=== PATIENT | male | born 1975 | race Two or more races ===

== ENCOUNTER 2019-06-24 05:42 | Inpatient (IN) | payer BC, MEDICAID, OTHER ==
[2019-06-23 19:00] VITALS: BP 136/86
[~2019-06-24] VITALS: Ht 172.7 cm; Wt 90.1 kg
[2019-06-24] MEDS ORDERED: SODIUM CHLORIDE 0.9% 1,000 ML IV ONE (06:15)
[2019-06-24] MEDS ORDERED: ONDANSETRON HCL 4 MG/2 ML VIAL IV ONE ×2 (06:15→08:00)
[2019-06-24 06:44] LABS: Basophils # (auto) 0 uL; Basophils % (auto) 0.2 % (0.0-2.0); Eosinophils # (auto) 0 uL; Eosinophils % (auto) 0.1 % (0.0-7.0); Hematocrit 48.4 % (41.0-53.0); Hemoglobin 16.4 g/dL (13.5-17.5); Lymphocytes # (auto) 0.7 uL; Lymphocytes % (auto) 3.9 % (10.0-50.0); Mean Corpuscular Hemoglobin 29.4 pg (28.0-32.0); Mean Corpuscular Hgb Conc. 33.8 g/dL (32.0-36.0); Mean Corpuscular Volume 87.1 fL (80.0-100.0); Monocytes # (auto) 0.9 uL; Monocytes % (auto) 5.6 % (0.0-12.0); Neutrophils % (auto) 90.2 % (37.0-80.0); Platelet Count (auto) 167 10^3/uL (140-450); Red Blood Cells 5.56 10^6/uL (4.5-5.90); Red Cell Distribution Width 13.9 % (11.8-14.3); White Blood Cell 16.7 10^3/uL (4.4-10.8)
[2019-06-24] MEDS ORDERED: KETOROLAC TROMETH 30 MG/ML 1ML VIAL IV ONE (06:45)
[2019-06-24 07:11] LABS: Albumin 4.3 g/dL (3.4-5.0); BUN/Creatinine Ratio 18.2; Bilirubin, Total 0.5 mg/dL (0.2-1.0); Calcium 8.8 mg/dL (8.5-10.1); Total Protein 8.5 g/dL (6.4-8.2)
[2019-06-24 10:45] LABS: Urine Bacteria NONE SEEN /hpf (None Seen); Urine Blood Negative /uL (Negative); Urine Hyaline Cast MANY /lpf (0 - 2); Urine Mucus FEW (None Seen); Urine Specific Gravity 1.033 (1.001-1.035); Urine WBC 2 /hpf (0 - 3)
[2019-06-24] MEDS ORDERED: LEVOFLOXACIN 500MG 100 ML IV ONE (17:30)
[2019-06-24] MEDS ORDERED: HYDROcodone-ACET 5/325MG TAB PO PRN (17:30)
[2019-06-24] MEDS ORDERED: ONDANSETRON HCL 4 MG/2 ML VIAL IV PRN (17:30)
[2019-06-24] MEDS ORDERED: ACETAMINOPHEN 500 MG TAB PO PRN (17:30)
[2019-06-24] MEDS: SODIUM CHLORIDE 0.9% 1,000 ML IV SCH (17:56)
--- NOTE | 2019-06-24 18:20 | NUR ---
MS admit from [facility] admitted to tele/MS ,primary RN, unit, room, bed, and unit policies regarding patient care and visiting hours. Patient weighed by bedscale and encouraged to call if they need something. All questions and concerns addressed, patient verbalized understanding. ,
--- NOTE | 2019-06-24 19:00 | NUR ---
OPENING SHIFT NOTE Assumed care of patient who is A&O x4. Currently on RA with no s/s of distress. is at the bedside at this time. POC discussed with patient who verbalizes understanding. Bed is in low locked position with side rails up x2. Call light is within reach and patient encourageed to call for assistance when needed. Will continue to monitor for changes PRN.
--- NOTE | 2019-06-24 20:23 | NUR ---
Patients home medications removed from bedside ad sent to pharmacy for storage until discharge.
[2019-06-24] MEDS: FAMOTIDINE (10MG/ML) 2ML VL IV SCH (21:52)
[2019-06-24] MEDS: metroNIDAZOLE 500MG/100ML 100 ML IV SCH (21:52)
[2019-06-24 22:00] VITALS: BP 136/86
[2019-06-24] MEDS ORDERED: DIAZ-104 PO (23:57)
[2019-06-24] MEDS ORDERED: LORA-622 PO (23:57)
--- NOTE | 2019-06-25 00:30 | NUR ---
Stool sample collected and sent to lab.
[2019-06-25] MEDS: SODIUM CHLORIDE 0.9% 1,000 ML IV SCH ×2 (03:30→13:30)
[2019-06-25 05:00] VITALS: BP 127/77
[2019-06-25 05:05] LABS: Basophils # (auto) 0 uL; Basophils % (auto) 0.4 % (0.0-2.0); Eosinophils # (auto) 0 uL; Eosinophils % (auto) 0.3 % (0.0-7.0); Hematocrit 43.3 % (41.0-53.0); Hemoglobin 14.7 g/dL (13.5-17.5); Lymphocytes # (auto) 1.2 uL; Lymphocytes % (auto) 16.2 % (10.0-50.0); Mean Corpuscular Hemoglobin 29.4 pg (28.0-32.0); Mean Corpuscular Hgb Conc. 33.8 g/dL (32.0-36.0); Mean Corpuscular Volume 86.9 fL (80.0-100.0); Monocytes # (auto) 0.6 uL; Monocytes % (auto) 7.6 % (0.0-12.0); Neutrophils # (auto) 5.5 uL; Neutrophils % (auto) 75.5 % (37.0-80.0); Nucleated Red Blood Cells % 0.1 %; Platelet Count (auto) 139 10^3/uL (140-450); Red Blood Cells 4.99 10^6/uL (4.5-5.90); White Blood Cell 7.3 10^3/uL (4.4-10.8)
[2019-06-25 05:27] LABS: Albumin 3.1 g/dL (3.4-5.0); Calcium 7.2 mg/dL (8.5-10.1); Potassium 3.7 mmol/L (3.5-5.1)
[2019-06-25 05:31] LABS: BUN/Creatinine Ratio 21.6; Bilirubin, Total 0.4 mg/dL (0.2-1.0); Total Protein 6.3 g/dL (6.4-8.2)
[2019-06-25] MEDS: metroNIDAZOLE 500MG/100ML 100 ML IV SCH (05:34)
--- NOTE | 2019-06-25 07:00 | NUR ---
Closing note Care endorsed to day shift RN. Patient is resting in bed, respirations are even and non-labored. No s/s of distress.
--- NOTE | 2019-06-25 07:30 | NUR ---
Opening Shift Note Assumed care of patient, awake and alert. No S/S of distress/SOB or pain. Instructed on POC and to call for assist PRN, will continue to monitor for changes Q1hr and PRN.
[2019-06-25 08:00] VITALS: BP 124/77
[2019-06-25 09:00] VITALS: BP 124/77
[2019-06-25] MEDS: FAMOTIDINE (10MG/ML) 2ML VL IV SCH ×2 (09:51→22:12)
[2019-06-25] MEDS: LEVOFLOXACIN 500MG 100 ML IV SCH (09:51)
[2019-06-25] MEDS ORDERED: guaiFENesin 200 MG/10 ML UD PO PRN (10:15)
--- NOTE | 2019-06-25 12:15 | NUR ---
NUTRITION CONSULT/ASSESSMENT NOTES Please refer to link notes of nutrition screen form filed under the intervention section of the plan of care for further details. Est. Needs: 1750 kcal to 2100 kcal (25-30 kcal/kgBW), 71 gms to 85 gms pro (1.0-1.2 gms/kgBW). Will continue to monitor pertinent labs and reassess nutrient need prn Thank you for this consult. Addendum: 06/25/19 at [address] Amended: Links added.
[2019-06-25 13:00] VITALS: BP 123/77
[2019-06-25] MEDS ORDERED: DIAZEPAM 2 MG TAB PO PRN (14:15)
--- NOTE | 2019-06-25 14:28 | NUR ---
Called/paged Dr. KWAN called re: PT'S REQUEST FOR ANXIETY MEDICATION THAT IS NOT ONLY FOR BEDTIME. PT STATED THAT HE GETS ANXIETY FOR BEING IN THE HOSPITAL. SPOKE TO MD. NEW ORDERS RECEIVED AND CARRIED OUT.
[2019-06-25] MEDS ORDERED: LORazepam 2MG/ML-1ML VIAL IV PRN (14:30)
[2019-06-25 17:00] VITALS: BP 123/79
--- NOTE | 2019-06-25 19:27 | NUR ---
Received patient from day RN, POC reviewed.
[2019-06-25 22:00] VITALS: BP 116/72
[2019-06-25] MEDS: MORPHINE SULF INJ 2 MG/ML SYRINGE 1ML IV PRN (23:25)
[2019-06-26] MEDS: SODIUM CHLORIDE 0.9% 1,000 ML IV SCH ×2 (00:01→09:30)
[2019-06-26] MEDS: MORPHINE SULF INJ 2 MG/ML SYRINGE 1ML IV PRN ×2 (03:19→09:38)
[2019-06-26 05:09] LABS: Basophils # (auto) 0 uL; Basophils % (auto) 0.7 % (0.0-2.0); Eosinophils # (auto) 0.3 uL; Eosinophils % (auto) 5.8 % (0.0-7.0); Hematocrit 41.8 % (41.0-53.0); Hemoglobin 14.1 g/dL (13.5-17.5); Lymphocytes # (auto) 1.6 uL; Lymphocytes % (auto) 26.6 % (10.0-50.0); Mean Corpuscular Hemoglobin 29.5 pg (28.0-32.0); Mean Corpuscular Hgb Conc. 33.7 g/dL (32.0-36.0); Mean Corpuscular Volume 87.5 fL (80.0-100.0); Monocytes # (auto) 0.7 uL; Monocytes % (auto) 11.3 % (0.0-12.0); Neutrophils # (auto) 3.4 uL; Neutrophils % (auto) 55.6 % (37.0-80.0); Platelet Count (auto) 133 10^3/uL (140-450); Red Blood Cells 4.77 10^6/uL (4.5-5.90)
[2019-06-26 05:31] LABS: Calcium 7.8 mg/dL (8.5-10.1); Potassium 3.8 mmol/L (3.5-5.1)
[2019-06-26 05:32] VITALS: BP 137/72
--- NOTE | 2019-06-26 06:48 | NUR ---
Report given to LAMAR ANDRES. POC reviewed.
[2019-06-26 09:00] VITALS: BP 127/83
[2019-06-26] MEDS ORDERED: LOSA-69 PO (09:26)
[2019-06-26] MEDS: FAMOTIDINE (10MG/ML) 2ML VL IV SCH (10:09)
[2019-06-26] MEDS: LEVOFLOXACIN 500MG 100 ML IV SCH (10:09)
[2019-06-26] MEDS ORDERED: LOPERAMIDE HCL 2 MG CAP PO ONE (10:15)
[2019-06-26 13:00] VITALS: BP 136/88
[2019-06-26 16:38] VITALS: BP 127/83
--- NOTE | 2019-06-26 18:37 | NUR ---
DISCHARGE INSTRUCTIONS GIVEN TO PT AND IV REMOVED. PT PRESENTLY WAITING ON TRANSPORTATION TO GO HOME.
--- NOTE | 2019-06-26 19:00 | NUR ---
Opening Shift Note Assumed care of patient, awake and alert. No S/S of distress/SOB or pain. Instructed on POC and to call for assist PRN, will continue to monitor for changes Q1hr and PRN. Side rails up x2. Bed locked in lowest position. Call light within reach. Patient awaiting ride home. Patient verbalized "My will be here by 9pm".
[2019-06-26 21:51] VITALS: BP 131/82
--- NOTE | 2019-06-26 22:56 | NUR ---
Discharge instructions given as ordered. Encourage to follow up with PMD as instructed. All questions and concerns addressed. Patient verbalized understanding. Patient taken to taxi via wheelchair with all personal belongings, accompanied by staff. No distress noted at time of departure.
== END 2019-06-26 22:50 | disposition home or self-care (01) | DRG 249 ==
LOC: ER 05:42 → OVERFLOW 05:43 → CENTRAL 18:26
PROVIDERS: ADMIT Nurse Practitioner Acute Care; ATTEND Internal Medicine
DX: K52.9 Noninfective gastroenteritis and colitis, unspecified (principal); N17.0 Acute kidney failure with tubular necrosis; Q60.0 Renal agenesis, unilateral; R65.10 Systemic inflammatory response syndrome (SIRS) of non-infectious origin without acute organ dysfunction; E86.0 Dehydration; D72.829 Elevated white blood cell count, unspecified; F41.9 Anxiety disorder, unspecified; B34.9 Viral infection, unspecified; I10 Essential (primary) hypertension; Z87.01 Personal history of pneumonia (recurrent); Z83.3 Family history of diabetes mellitus; Z90.5 Acquired absence of kidney; Z88.2 Allergy status to sulfonamides
CPT/HCPCS: 36415; 71046; 74176; 80048; 80053; 81001; 85025; 87045; 87427; 87493; 96361; 96374; 96375; 96376; G0378; J1885; J1956; J2405; J3490